=== PATIENT | female | born 1945 | race Two or more races ===

== ENCOUNTER 2017-12-11 08:35 | Outpatient (CLI) | payer OTHER ==
[~2017-12-11] VITALS: Ht 152.4 cm; Wt 61.2 kg
[~2017-12-11 08:35] MED LIST: CLARITIN10 MG PO; DYMISTA NASAL S23 GM NS; FLONASE16 G1 NS
[2017-12-11] MEDS ORDERED: FLONASE16 GM NASAL (10:37)
[2017-12-11] MEDS ORDERED: CLARITIN10 MG PO (10:37)
== END 2017-12-11 08:50 | disposition home or self-care (01) ==
LOC: OFIC 805 08:35
DX: J34.2 Deviated nasal septum (principal); J01.80 Other acute sinusitis; J31.0 Chronic rhinitis; J34.3 Hypertrophy of nasal turbinates

== ENCOUNTER 2017-12-24 08:00 | Outpatient (CLI) | payer OTHER ==
[~2017-12-24 08:00] MED LIST changes: +FLONASE16 GM NASAL
== END 2017-12-24 10:00 | disposition home or self-care (01) ==
LOC: RAD 501 08:00
DX: J43.2 Centrilobular emphysema (principal); J30.9 Allergic rhinitis, unspecified; Z72.0 Tobacco use; R06.02 Shortness of breath

== ENCOUNTER 2018-03-12 08:57 | Outpatient (CLI) | payer OTHER | END 2018-03-12 09:03 | disposition home or self-care (01) | LOC: RAD 501 08:57 | DX: J44.1 Chronic obstructive pulmonary disease with (acute) exacerbation (principal); Z72.0 Tobacco use ==

== ENCOUNTER 2018-06-13 12:48 | Outpatient (CLI) | payer OTHER ==
[~2018-06-13] VITALS: Ht 152.4 cm; Wt 60.8 kg
== END 2018-06-13 13:10 | disposition home or self-care (01) ==
LOC: OFIC 805 12:48
DX: J31.0 Chronic rhinitis (principal); J34.2 Deviated nasal septum; J34.3 Hypertrophy of nasal turbinates; R09.81 Nasal congestion

== ENCOUNTER 2019-01-28 11:04 | Outpatient (CLI) | payer OTHER ==
[~2019-01-28] VITALS: Ht 152.4 cm; Wt 59.0 kg
[2019-01-28] MEDS ORDERED: CLARITIN10 MG PO (13:10)
[2019-01-28] MEDS ORDERED: FLONASE16 GM NASAL (13:10)
== END 2019-01-28 11:20 | disposition home or self-care (01) ==
LOC: OFIC 805 11:04
DX: J31.0 Chronic rhinitis (principal); J34.3 Hypertrophy of nasal turbinates; R05 Cough; J45.998 Other asthma